=== PATIENT | male | born 1940 | race African-American/Black ===

== ENCOUNTER 2023-11-19 07:11 | Outpatient (CLI) | payer OTHER | END 2023-11-19 08:38 | disposition home or self-care (01) | LOC: SONOGRAMA 07:11 | PROVIDERS: ATTEND Urology | DX: C61 Malignant neoplasm of prostate (principal); N40.1 Benign prostatic hyperplasia with lower urinary tract symptoms; R97.20 Elevated prostate specific antigen [PSA] ==

== ENCOUNTER 2023-11-27 07:58 | Outpatient (CLI) | payer OTHER | END 2023-11-27 08:03 | disposition home or self-care (01) | LOC: TOM 07:58 | PROVIDERS: ATTEND Internal Medicine Gastroenterology | DX: K63.5 Polyp of colon (principal); K56.600 Partial intestinal obstruction, unspecified as to cause ==

== ENCOUNTER 2023-12-04 16:22 | Outpatient (CLI) | payer OTHER ==
[2023-12-04 17:12] LABS: CREATININE SERUM 1.27 mg/dL (0.70-1.30)
== END 2023-12-04 16:31 | disposition home or self-care (01) ==
LOC: LAB 16:22
PROVIDERS: ATTEND Radiology Diagnostic Radiology
DX: C61 Malignant neoplasm of prostate (principal)

== ENCOUNTER 2023-12-09 07:34 | Outpatient (CLI) | payer OTHER | END 2023-12-09 07:41 | disposition home or self-care (01) | LOC: TOM 07:34 | PROVIDERS: ATTEND Urology | DX: C61 Malignant neoplasm of prostate (principal) | CPT/HCPCS: 74178; Q9965 ==

== ENCOUNTER 2024-01-21 08:54 | Outpatient (CLI) | payer OTHER ==
[2024-01-22] MEDS ORDERED: TAMS0.4C PO (14:20)
[2024-01-22] MEDS ORDERED: LOSARTAN-HCTZ1 EAC2 PO (14:20)
== END 2024-01-21 09:26 | disposition home or self-care (01) ==
LOC: TOM 08:54
PROVIDERS: ATTEND Surgery
DX: C18.2 Malignant neoplasm of ascending colon (principal); R19.4 Change in bowel habit; R19.5 Other fecal abnormalities
CPT/HCPCS: 71046; 71260; Q9965

== ENCOUNTER 2024-01-22 10:15 | Inpatient (IN) | payer OTHER ==
[~2024-01-22] VITALS: Ht 185.4 cm; Wt 44.1 kg
[2024-01-22 14:20] VITALS: BP 149/88
[2024-01-22] MEDS ORDERED: TAMS0.4C PO (14:20)
[2024-01-22] MEDS ORDERED: LOSARTAN-HCTZ1 EAC2 PO (14:20)
[2024-01-30] MEDS ORDERED: METRONIDAZOLE/SODIUM CHLORIDE 500 MG/100 ML PIGGYBACK IV ONE (07:40)
[2024-01-30] MEDS ORDERED: CEFTRIAXONE SODIUM 2,000 MG VIAL ONE (07:40)
[2024-01-30] MEDS ORDERED: SUGAMMADEX SODIUM 200 MG/2 ML VIAL IV ONE ×2 (10:28→11:00)
[2024-01-30] MEDS ORDERED: 0.9 % SODIUM CHLORIDE 1,000 ML IV SCH (10:45)
[2024-01-30] MEDS ORDERED: OxyCODONE HCL 5 MG TABLET (ROXICODONE) PO PRN (10:45)
[2024-01-30] MEDS ORDERED: DEXTROSE 50 % IN WATER 0.5 G/ML DISP.SYRIN IV PRN (10:45)
[2024-01-30] MEDS ORDERED: ONDANSETRON HCL 2 MG/ML VIAL IV PRN (10:45)
[2024-01-30] MEDS ORDERED: MORPHINE SULFATE 4 MG/ML CARTRIDGE IV PRN (10:45)
[2024-01-30] MEDS ORDERED: MORPHINE SULFATE 4 MG/ML VIAL IV ONE ×3 (11:20→13:35)
[2024-01-30 11:56] LABS: HEMATOCRIT 30.6 % (39.0-48.0); HEMOGLOBIN 10.4 g/dL (13-16.00); MEAN CELL VOLUME 89.9 fL (80.0-100.00); MEAN CORPUSCULAR HEMOGLOBIN 30.5 pg (27.00-32.0); MEAN CORPUSCULAR HGB CONC 33.9 g/dl (32.0-36.0); PLATELET COUNT 205 K/uL (150-450)
[2024-01-30 12:35] LABS: ALBUMIN 3.2 gm/dL (3.4-5.0); CALCIUM 9.2 mg/dL (8.5-10.1); CREATININE SERUM 1.13 mg/dL (0.70-1.30); GFR 62.13; MAGNESIUM 2.1 mg/dL (1.8-2.4); PHOSPHOROUS 3.3 mg/dL (2.5-4.9); POTASSIUM 3.93 mEq/L (3.5-5.1)
[2024-01-30] MEDS ORDERED: HYOSCYAMINE SULFATE 0.125 MG TAB.SUBL SL SCH (13:00)
[2024-01-30] MEDS ORDERED: ACETAMINOPHEN 500 MG GEL..CAP PO SCH (14:00)
[2024-01-30] MEDS ORDERED: ENALAPRILAT DIHYDRATE 1.25 MG/ML VIAL IV PRN (14:15)
[2024-01-30 14:23] LABS: ABG PH 7.344 (7.35-7.45); ABG PO2 159.4 mmHg (80-100); ABG pCO2 45.3 mmHg (35-45); BASE EXCESS -1.8 mmol/l; BICARBONATE 24.1 mmol/l (23-25); SaO2 99.3 %; Tco2 25.5 mmol/l; allen test SATISFACTORY; o2 40 %; puncture site RADIAL RIGHT
[2024-01-30 16:20] VITALS: BP 149/88; O2SAT 95
[2024-01-30] MEDS ORDERED: METRONIDAZOLE/SODIUM CHLORIDE 500 MG/100 ML PIGGYBACK IV SCH (17:00)
[2024-01-30] MEDS ORDERED: GABAPENTIN 300 MG CAPSULE PO SCH (17:00)
[2024-01-30] MEDS ORDERED: POLYETHYLENE GLYCOL 3350 17 GM BLIST.PACK PO SCH (17:00)
[2024-01-30 19:28] VITALS: O2SAT 94
[2024-01-30] MEDS ORDERED: TAMSULOSIN HCL 0.4 MG CAP PO SCH (21:00)
[2024-01-30] MEDS ORDERED: FAMOTIDINE/PF 20 MG/2 ML VIAL IV PUSH SCH (21:00)
[2024-01-31] VITALS (9 sets, daily range): BP systolic 111–120; BP diastolic 51–72; O2SAT 92–99
[2024-01-31 07:21] LABS: HEMATOCRIT 36.1 % (39.0-48.0); HEMOGLOBIN 12.1 g/dL (13-16.00); MEAN CELL VOLUME 90.4 fL (80.0-100.00); MEAN CORPUSCULAR HEMOGLOBIN 30.2 pg (27.00-32.0); MEAN CORPUSCULAR HGB CONC 33.4 g/dl (32.0-36.0); PLATELET COUNT 206 K/uL (150-450); RED CELL DISTRIBUTION WIDTH 13.7 % (11.5-14.5)
[2024-01-31 08:11] LABS: ALBUMIN 3.1 gm/dL (3.4-5.0); CALCIUM 8.8 mg/dL (8.5-10.1); CREATININE SERUM 1.06 mg/dL (0.70-1.30); GFR 66.88; MAGNESIUM 1.9 mg/dL (1.8-2.4); PHOSPHOROUS 2.6 mg/dL (2.5-4.9); POTASSIUM 3.86 mEq/L (3.5-5.1)
[2024-01-31] MEDS ORDERED: LOSARTAN/HYDROCHLOROTHIAZIDE 1 TAB TABLET PO SCH (09:00)
[2024-01-31] MEDS ORDERED: ENOXAPARIN SODIUM 40 MG/0.4 ML SYRINGE SUBCUTANEO SCH (17:00)
[2024-02-01] VITALS (7 sets, daily range): BP systolic 105–128; BP diastolic 57–76; O2SAT 95–100
[2024-02-01 08:00] LABS: HEMATOCRIT 35.6 % (39.0-48.0); MEAN CELL VOLUME 88.3 fL (80.0-100.00); MEAN CORPUSCULAR HEMOGLOBIN 29.7 pg (27.00-32.0); MEAN CORPUSCULAR HGB CONC 33.7 g/dl (32.0-36.0); PLATELET COUNT 231 K/uL (150-450); RED BLOOD COUNT 4.03 M/uL (4.00-6.00); RED CELL DISTRIBUTION WIDTH 13.9 % (11.5-14.5)
[2024-02-01 08:40] LABS: CALCIUM 9.3 mg/dL (8.5-10.1); CREATININE SERUM 1.21 mg/dL (0.70-1.30); GFR 57.41; MAGNESIUM 1.9 mg/dL (1.8-2.4); PHOSPHOROUS 2.4 mg/dL (2.5-4.9); POTASSIUM 4.49 mEq/L (3.5-5.1)
[2024-02-01] MEDS ORDERED: ENOXAPARIN SODIUM 40 MG/0.4 ML SYRINGE SUBCUTANEO SCH (09:00)
[2024-02-01] MEDS ORDERED: POTASSIUM PHOS,M-BASIC-D-BASIC 9 MM in 0.9 % SODIUM CHLORIDE 250 ML IV NR (10:45)
[2024-02-02 00:36] VITALS: BP 124/85; O2SAT 98
[2024-02-02 08:00] VITALS: BP 111/66; O2SAT 97
[2024-02-02 16:00] VITALS: BP 98/57; O2SAT 96
[2024-02-03 00:39] VITALS: BP 124/67; O2SAT 98
[2024-02-03 07:00] LABS: HEMATOCRIT 32.3 % (39.0-48.0); HEMOGLOBIN 10.8 g/dL (13-16.00); MEAN CELL VOLUME 88.7 fL (80.0-100.00); MEAN CORPUSCULAR HEMOGLOBIN 29.7 pg (27.00-32.0); MEAN CORPUSCULAR HGB CONC 33.5 g/dl (32.0-36.0); PLATELET COUNT 229 K/uL (150-450); RED BLOOD COUNT 3.64 M/uL (4.00-6.00); RED CELL DISTRIBUTION WIDTH 14.2 % (11.5-14.5)
[2024-02-03 07:53] LABS: BILIRUBIN TOTAL 0.51 mg/dL (0.3-1.2); CALCIUM 9.4 mg/dL (8.5-10.1); CREATININE SERUM 2.75 mg/dL (0.70-1.30); GFR 22.26; GLOBULINA 3.8 G/DL (2.4-3.5); POTASSIUM 4.17 mEq/L (3.5-5.1); TOTAL PROTEIN 6.8 gm/dL (6.4-8.2)
[2024-02-03 08:20] VITALS: BP 117/77; O2SAT 93
[2024-02-03] MEDS ORDERED: hydrALAZINE HCL 20 MG VIAL IV PRN (11:30)
[2024-02-03 16:51] VITALS: BP 160/77; O2SAT 95
[2024-02-04 00:26] VITALS: BP 148/76; O2SAT 96
[2024-02-04 07:30] VITALS: BP 144/83; O2SAT 100
[2024-02-04 07:44] LABS: HEMATOCRIT 28.7 % (39.0-48.0); HEMOGLOBIN 9.8 g/dL (13-16.00); MEAN CELL VOLUME 87.8 fL (80.0-100.00); MEAN CORPUSCULAR HGB CONC 34.1 g/dl (32.0-36.0); PLATELET COUNT 211 K/uL (150-450); RED BLOOD COUNT 3.27 M/uL (4.00-6.00); RED CELL DISTRIBUTION WIDTH 14.2 % (11.5-14.5)
[2024-02-04 08:41] LABS: CALCIUM 9.5 mg/dL (8.5-10.1); CREATININE SERUM 1.59 mg/dL (0.70-1.30); GFR 41.89; MAGNESIUM 2.2 mg/dL (1.8-2.4); PHOSPHOROUS 2.3 mg/dL (2.5-4.9); POTASSIUM 3.73 mEq/L (3.5-5.1)
[2024-02-04] MEDS ORDERED: SOD FERRIC GLUC COMPLX/SUCROSE 62.5 MG in 0.9 % SODIUM CHLORIDE 50 ML IV SCH (09:00)
[2024-02-04] MEDS ORDERED: ENOXAPARIN SODIUM 30 MG/0.3 ML SYRINGE SUBCUTANEO SCH (09:00)
[2024-02-04] MEDS ORDERED: Cyanocobalamin/Mecobalamin 1 TAB.SL SL SCH (09:00)
[2024-02-04] MEDS ORDERED: LOSARTAN POTASSIUM 100 MG TABLET PO SCH (11:39)
[2024-02-04] MEDS ORDERED: POTASSIUM PHOS,M-BASIC-D-BASIC 3 MM/ML VIAL IV NR (11:45)
[2024-02-04 16:00] VITALS: BP 152/82; O2SAT 98
[2024-02-05] VITALS: BP 152/85; O2SAT 96
[2024-02-05 06:07] LABS: HEMATOCRIT 28.5 % (39.0-48.0); HEMOGLOBIN 9.8 g/dL (13-16.00); MEAN CELL VOLUME 88.4 fL (80.0-100.00); MEAN CORPUSCULAR HEMOGLOBIN 30.3 pg (27.00-32.0); MEAN CORPUSCULAR HGB CONC 34.3 g/dl (32.0-36.0); PLATELET COUNT 214 K/uL (150-450); RED BLOOD COUNT 3.23 M/uL (4.00-6.00); RED CELL DISTRIBUTION WIDTH 13.7 % (11.5-14.5)
[2024-02-05 07:05] LABS: CALCIUM 9.7 mg/dL (8.5-10.1); CREATININE SERUM 1.14 mg/dL (0.70-1.30); GFR 61.5; PHOSPHOROUS 2.7 mg/dL (2.5-4.9); POTASSIUM 3.83 mEq/L (3.5-5.1)
[2024-02-05] MEDS ORDERED: HYOSCYAMINE0.125 M1 SL (07:53)
[2024-02-05] MEDS ORDERED: TRAM1TAB98 PO (07:54)
[2024-02-05] MEDS ORDERED: PEPCID AC20 MG PO (07:54)
[2024-02-05] MEDS ORDERED: TAMS0.4C PO (07:57)
[2024-02-05 10:20] VITALS: BP 143/80; O2SAT 96
== END 2024-02-05 16:58 | disposition home or self-care (01) | DRG 330 ==
LOC: O/R 01-30 06:00 → SURG 01-30 10:15
PROVIDERS: Internal Medicine; Internal Medicine Geriatric Medicine; ADMIT Surgery; ATTEND Surgery
PROC: 07BB4ZZ Excision of Mesenteric Lymphatic, Percutaneous Endoscopic Approach (ICD-10-PCS; 2024-01-30)
PROC: 4A12X4Z Monitoring of Cardiac Electrical Activity, External Approach (ICD-10-PCS; 2024-01-30)
PROC: 0DTF4ZZ Resection of Right Large Intestine, Percutaneous Endoscopic Approach (ICD-10-PCS; principal; 2024-01-30 12:00)
PROC: BT4JZZZ Ultrasonography of Kidneys and Bladder (ICD-10-PCS; 2024-02-03)
DX: C18.2 Malignant neoplasm of ascending colon (principal); N17.9 Acute kidney failure, unspecified; R19.4 Change in bowel habit; G47.30 Sleep apnea, unspecified; D64.9 Anemia, unspecified; N40.1 Benign prostatic hyperplasia with lower urinary tract symptoms; R33.8 Other retention of urine; R59.0 Localized enlarged lymph nodes